=== PATIENT | female | born 1995 | race Caucasian/White ===

== ENCOUNTER 2025-07-26 13:45 | Outpatient (CLI) | payer OTHER, SELFPAY ==
--- NOTE | ~2025-07-26 | US_ITS ---
EXAMINATION: US transvaginal DATE: 07/26/2025 14:20 INDICATION: Pelvic pain. TECHNIQUE: Multiple transvaginal sonographic images of the pelvis were obtained. COMPARISON: None. FINDINGS: The uterus measures 6.7 x 3.0 x 3.6 cm. There is no free fluid in the pelvis. The endometrial complex measures 6 mm in thickness. There is an intrauterine device in expected position. The right ovary measures 2.5 x 2.9 x 2.0 cm. The left ovary measures 2.8 x 2.9 x 1.9 cm. There is normal vascular flow in the ovaries. IMPRESSION: 1. Intrauterine device in expected position. Reviewed, dictated and finalized at location E.
== END 2025-07-26 13:46 | disposition home or self-care (01) ==
PROVIDERS: PCP Nurse Practitioner; Visit Provider Nurse Practitioner
DX: R10.20 Pelvic and perineal pain unspecified side (principal); Z97.5 Presence of (intrauterine) contraceptive device
CPT/HCPCS: 76830